=== PATIENT | female | born 1970 ===

== ENCOUNTER 2018-04-01 19:46 | Emergency (ER) | payer MEDICAID ==
[2018-04-01 20:07] VITALS: O2SAT 100
--- NOTE | 2018-04-01 20:24 | C.PDOC ---
History Of Present Illness 48 year old female presents to the ED c/o right sided weakness, dizziness and a mild headache that started yesterday. Patient denies injury, fall, trauma, nausea, vomit, visual changes, numbness, CP, SOB. Chief Complaint (Nursing): Weakness/Neurological Deficit History Per: Patient History/Exam Limitations: no limitations Onset/Duration Of Symptoms: Days Current Symptoms Are (Timing): Still Present Activity At Onset Of Symptoms: Lying Associated Symptoms Preceding Syncopal Episode: No Predromal Symptoms (Sudden Onset) Seizure Or Post-ictal Symptoms: None Possible Causative Factor(s): Other Fall Associated With With Symptoms: No Severity: None Recent travel outside of the [place]: No Additional History Per: Patient Past Medical History Reviewed: Historical Data, Nursing Documentation, Vital Signs Vital Signs: Last Vital Signs Temp 98.6 F 04/01/18 20:00 Pulse 73 04/01/18 20:00 Resp 19 04/01/18 20:00 BP 145/92 H 04/01/18 20:00 Pulse Ox 100 04/01/18 20:00 - Medical History PMH: HIV, HTN Surgical History: No Surg Hx Family History: States: Unknown Family Hx - Social History Hx Alcohol Use: No Hx Substance Use: No - Immunization History Hx Tetanus Toxoid Vaccination: No Hx Influenza Vaccination: Yes Hx Pneumococcal Vaccination: Yes Review Of Systems Constitutional: Negative for: Fever, Chills Cardiovascular: Negative for: Chest Pain Respiratory: Negative for: Shortness of Breath Gastrointestinal: Negative for: Nausea, Vomiting Skin: Negative for: Rash Neurological: Positive for: Weakness. Negative for: Numbness, Headache, Dizziness Physical Exam - Physical Exam Appears: Non-toxic, No Acute Distress Skin: Normal Color, Warm, Dry Head: Atraumatic, Normacephalic Eye(s): bilateral: Normal Inspection Neck: Normal ROM, Supple Chest: Symmetrical Cardiovascular: Rhythm Regular Respiratory: Normal Breath Sounds, No Rales, No Rhonchi, No Wheezing Gastrointestinal/Abdominal: Soft, No Tenderness, No Guarding, No Rebound Extremity: Normal ROM, No Tenderness, No Swelling Neurological/Psych: Oriented x3, Normal Speech, Normal Cognition, Normal Motor, Normal Sensation, Other (non focal deficits) Gait: Steady ED Course And Treatment - Laboratory Results Result Diagrams: 04/01/18 18:50 04/01/18 18:50 ECG: Interpreted By Me, Viewed By Me ECG Rhythm: Sinus Rhythm ECG Interpretation: No Acute Changes Interpretation Of ECG: NSR, LVH, abnormal tracings. Rate From EC O2 Sat by Pulse Oximetry: 100 (ON RA) Pulse Ox Interpretation: Normal - CT Scan/US CT head Other Rad Studies (CT/US): Read By Radiologist, Radiology Report Reviewed CT/US Interpretation: EXAM: CT Head Without IV contrast. CLINICAL HISTORY: Headache no trauma. TECHNIQUE: Axial computed tomography images of the head /brain without intravenous contrast. COMPARISON: None provided. FINDINGS: BRAIN. No acute intraparenchymal hemorrhage. No mass lesion. No CT evidence for acute territorial infarct. No midline shift or extra-axial collections. VENTRICLES: No hydrocephalus. ORBITS: The orbits are unremarkable. SINUSES AND MASTOIDS: The paranasal sinuses and mastoid air cells are clear. BONES: No fracture. IMPRESSION: No acute intracranial abnormality. . Electronically signed on Apr 01, 2018 9:45:05 PM EDT by: Maurilio Holbrook M.D., ALEX Certified By ABR & CBC[facility]. Fellowship Trained MRI and CT Specialist Medical Decision Making Medical Decision Making: Plan: * CT head * EKG * Labs * Antivert 25 mg PO * UA Disposition Counseled Patient/Family Regarding: Diagnosis - Disposition Referrals: [facility] [Outside] Disposition: HOME/ ROUTINE Disposition Time: 21:56 Condition: STABLE Prescriptions: Ciprofloxacin [Cipro] 1 tab PO BID #14 tab Meclizine [Antivert] 12.5 mg PO Q6 #14 tab Instructions: Labyrinthitis, Urinary Tract Infections in Adults Forms: [facility] (Sammarinese), Gen Discharge Inst Turkish Print Language: PALAUAN - POA Present On Arrival: None - Clinical Impression Clinical Impression: Vertigo, UTI (urinary tract infection) - Scribe Statement The provider has reviewed the documentation as recorded by the Scribe Jacques Thompson All medical record entries made by the Scribe were at my direction and personally dictated by me. I have reviewed the chart and agree that the record accurately reflects my personal performance of the history, physical exam, medical decision making, and the department course for this patient. I have also personally directed, reviewed, and agree with the discharge instructions and disposition.
[2018-04-01 20:38] LABS: BASO % 0.5 % (0.0-2.0); EOS # 0.1 K/uL (0.0-0.7); HEMOGLOBIN 14.2 g/dL (11.0-16.0); LYMPH # 2.2 K/uL (1.0-4.3); LYMPH % 33.8 % (20.0-40.0); MEAN CORPUSCULAR HEMOGLOBIN 33.3 pg (27.0-31.0); MEAN CORPUSCULAR HGB CONC 34.7 g/dL (33.0-37.0); MEAN PLATELET VOLUME 7.8 fL (7.2-11.7); MONO # 0.5 K/uL (0.0-0.8); NEUT # 3.8 K/uL (1.8-7.0); NEUT % 57.7 % (50.0-75.0); NRBC % 0.2 % (0.0-2.0); RBC 4.25 Mil/uL (3.80-5.20); RED CELL DISTRIBUTION WIDTH 12.7 % (11.5-14.5); WHITE BLOOD COUNT 6.5 K/uL (4.8-10.8)
[2018-04-01 20:46] LABS: SQUAMOUS EPITHIAL 12 /hpf (0-5); URINE BACTERIA MANY (<OCC); URINE BILIRUBIN NEGATIVE (NEGATIVE); URINE BLOOD 2+ (NEGATIVE); URINE CLARITY Hazy (Clear); URINE COLOR Yellow (YELLOW); URINE GLUCOSE (UA) NORMAL (Normal); URINE LEUKOCYTE ESTERASE 3+ Leu/uL (Negative); URINE PROTEIN NEGATIVE (NEGATIVE); URINE UROBILINOGEN NORMAL mg/dL (0.2-1.0)
[2018-04-01 20:50] LABS: ALB/GLOB RATIO 1.2 (1.0-2.1); ALBUMIN 4.3 g/dL (3.5-5.0); ALT/SGPT 22 U/L (9-52); AST/SGOT 28 U/L (14-36); BLOOD UREA NITROGEN 15 mg/dL (7-17); CALCIUM 9.5 mg/dl (8.6-10.4); GFR NON-AFRICAN AMERICAN > 60
[2018-04-01 22:11] VITALS: BP 131/83; PULSE 66; RESP 18; TEMP 98.7
--- NOTE | 2018-04-02 08:49 | CT ---
Date of service: 04/01/2018 PROCEDURE: CT HEAD WITHOUT CONTRAST. HISTORY: Headache COMPARISON: None available. TECHNIQUE: Axial computed tomography images were obtained through the head/brain without intravenous contrast. Radiation dose: Total exam DLP = 956 mGy-cm. This CT exam was performed using one or more of the following dose reduction techniques: Automated exposure control, adjustment of the mA and/or kV according to patient size, and/or use of iterative reconstruction technique. FINDINGS: HEMORRHAGE: No intracranial hemorrhage. BRAIN: Focal hypodensity seen within the left aspect of the sujatha on series 2, image 7 which may represent age-indeterminate ischemic change. Further evaluation with MRI is recommended. VENTRICLES: Unremarkable. No hydrocephalus. CALVARIUM: Unremarkable. PARANASAL SINUSES: Unremarkable as visualized. No significant inflammatory changes. MASTOID AIR CELLS: Unremarkable as visualized. No inflammatory changes. OTHER FINDINGS: Intracranial arterial calcifications. IMPRESSION: Focal hypodensity seen within the left aspect of the sujatha on series 4, image 13 which may represent age-indeterminate ischemic change. Further evaluation with MRI is recommended. These findings were relayed to Bong Holbrook at 8:44 a.m. on 04/02/2018. Preliminary report was generated at 9:45 p.m. on 04/01/[address] Maurilio Holbrook from [email or web address].
--- NOTE | 2018-04-02 22:49 | CARD ---
APPROVED REPORT Date of service: 04/01/2018 EKG Measurement Heart [id number] OR [id number] <Conclusion> Normal sinus rhythm Possible Left atrial enlargement Left ventricular hypertrophy Cannot rule out Septal infarct, age undetermined Abnormal ECG
== END 2018-04-01 22:12 | disposition home or self-care (01) ==
LOC: C.ER 19:46
DX: R42 Dizziness and giddiness (principal); N39.0 Urinary tract infection, site not specified

== ENCOUNTER 2018-04-03 13:38 | Emergency (ER) | payer MEDICAID ==
[2018-04-03 14:21] VITALS: RESP 18; O2SAT 100
[2018-04-03 15:56] LABS: BASO % 0.3 % (0.0-2.0); EOS % 0.6 % (0.0-4.0); HEMOGLOBIN 12.6 g/dL (11.0-16.0); LYMPH # 2.5 K/uL (1.0-4.3); LYMPH % 32.8 % (20.0-40.0); MEAN CELL VOLUME 95.8 fL (81.0-99.0); MEAN CORPUSCULAR HEMOGLOBIN 33.1 pg (27.0-31.0); MEAN CORPUSCULAR HGB CONC 34.6 g/dL (33.0-37.0); MEAN PLATELET VOLUME 7.6 fL (7.2-11.7); MONO # 0.4 K/uL (0.0-0.8); MONO % 4.8 % (0.0-10.0); NEUT # 4.6 K/uL (1.8-7.0); NEUT % 61.5 % (50.0-75.0); RBC 3.81 Mil/uL (3.80-5.20); RED CELL DISTRIBUTION WIDTH 12.7 % (11.5-14.5); WHITE BLOOD COUNT 7.5 K/uL (4.8-10.8)
[2018-04-03 16:04] LABS: INR 1.1; PROTHROMBIN TIME 11.5 SECONDS (9.7-12.2)
--- NOTE | 2018-04-03 16:21 | C.PDOC ---
History Of Present Illness 48 year old female presents to the ED for evaluation of right arm and leg weakness which began around one week ago. Patient states symptoms are associated with dizziness, nausea, and left facial paresthesia. Patient was evaluated in this ED on 04/01 and was diagnosed with vertigo. An official reading of the CT scan demonstrated a possible area of ischemia and patient was advised to return to the ED for further evaluation. Patient reports she started taking Aspirin since one week and her symptoms have slightly decreased. Patient denies headache, blurry vision, difficulty with speech or gait. Past medical history: hypertension, HIV Surgical history: none Social history: no smoking or drinking Family history: none PMD: Dr. Dr. Hernandez Time Seen by Provider: 04/03/18 15:12 Chief Complaint (Nursing): Weakness/Neurological Deficit History Per: Patient History/Exam Limitations: no limitations Onset/Duration Of Symptoms: Days Current Symptoms Are (Timing): Better Past Medical History Reviewed: Historical Data, Nursing Documentation, Vital Signs Vital Signs: Last Vital Signs Temp 98.5 F 04/03/18 14:19 Pulse 75 04/03/18 14:19 Resp 18 04/03/18 14:19 BP 150/84 04/03/18 14:19 Pulse Ox 100 04/03/18 14:19 - Medical History PMH: HIV, HTN Surgical History: No Surg Hx Family History: States: Unknown Family Hx - Social History Hx Alcohol Use: No Hx Substance Use: No - Immunization History Hx Tetanus Toxoid Vaccination: Yes Hx Influenza Vaccination: Yes (2018) Hx Pneumococcal Vaccination: Yes Review Of Systems Eyes: Negative for: Vision Change Neurological: Positive for: Weakness (right arm and leg ). Negative for: Change in Speech, Headache Physical Exam - Physical Exam Appears: Non-toxic, No Acute Distress Skin: Warm, Dry Head: Atraumatic, Normacephalic Eye(s): bilateral: PERRL, EOMI Oral Mucosa: Moist Neck: Normal ROM, Trachea Midline Lymphatic: No Adenopathy Cardiovascular: Rhythm Regular, No Murmur Respiratory: Normal Breath Sounds, No Wheezing Gastrointestinal/Abdominal: Soft, No Tenderness Back: Normal Inspection, No Decreased ROM Extremity: Normal ROM, No Deformity Neurological/Psych: Oriented x3, Other (left-sided facial droop noted. subtle motor weakness in right arm and leg, 4+/5 ) ED Course And Treatment - Laboratory Results Result Diagrams: 04/03/18 15:52 04/03/18 15:52 ECG: Interpreted By Me ECG Rhythm: Sinus Rhythm (60), Nonspecific Changes (but no st elevations or depression) O2 Sat by Pulse Oximetry: 100 (on RA) Pulse Ox Interpretation: Normal - Radiology CXR: Interpreted by Me CXR Interpretation: Yes: No Acute Disease Medical Decision Making Medical Decision Making: Impression: unilateral weakness Differential diagnoses include but are not limited to: stroke vs electrolyte abnormality vs intracranial mass vs multiple sclerosis Progress: Bloodwork, urinalysis, CXR, EKG ordered and reviewed. DW Dr Elizalde Neurology who recommends MRI brain, MRA head/neck. Hospitalize for acute CVA. Labs unremarkable 620p Dr Elizalde reviewed MRI and reports pt stable for DC. Pt can complete workup as outpatient DW pt plan of care. 745p MRI report demonstrates subacute CVA sujatha. DW Dr Elizalde who recommends pt to be called back for hospitalization. Called pt at home and advised to return to hospital immediately for continued workup as inpatient. DW pt and in bulgarian need to return to ER. Advised about findings on MRI. Disposition Counseled Patient/Family Regarding: Studies Performed, Diagnosis - Disposition Referrals: Krunal Elizalde MD [Staff Provider] - (LLAME A LA OFICINA POR LA MANANA A HACER HARVEY BILLY EST SEMANA POR MAS EVALUACIONES.) Disposition: HOME/ ROUTINE Disposition Time: 17:55 Condition: STABLE Prescriptions: RX: Aspirin [Ecotrin] 81 mg PO DAILY #100 tabec Instructions: Generalized Weakness (DC) Forms: [facility] (Macanese) Print Language: MONGOLIAN - Clinical Impression Clinical Impression: Muscle weakness - Scribe Statement The provider has reviewed the documentation as recorded by the Scribe (Mryanda Ibrahim) Provider Attestation: All medical record entries made by the Scribe were at my direction and personally dictated by me. I have reviewed the chart and agree that the record accurately reflects my personal performance of the history, physical exam, me dical decision making, and the department course for this patient. I have also personally directed, reviewed, and agree with the discharge instructions and disposition. NIHSS Stroke Scale - Date/Time Evaluation Performed Date Performed: 04/03/18 Time Performed: 15:15 When Was NIHSS Performed: Baseline - How Severe is the Stoke Level of Consciousness: 0=Alert LOC to Questions: 0=Both comments correct LOC to commands: 0=Obeys both correctly Best Gaze: 0=Normal Visual: 0=No visual loss Facial: 1=Minor asymmetry Motor Arm - Left: 0=No drift Motor Arm - Right: 0=No drift Motor Leg - Left: 0=No drift Motor Leg - Right: 0=No drift Limb Ataxia: 0=Absent Sensory: 0=Normal Best Language: 0=No aphasia Dysarthia: 0=Normal articulation Extinction & Inattention (Neglect): 0=Normal, no object Score: 1 Severity Of Stroke: 1-4= Minor Stroke
[2018-04-03 16:30] LABS: ALB/GLOB RATIO 1.2 (1.0-2.1); ALBUMIN 4.3 g/dL (3.5-5.0); ALT/SGPT 26 U/L (9-52); AST/SGOT 28 U/L (14-36); BLOOD UREA NITROGEN 12 mg/dL (7-17); CALCIUM 9.6 mg/dl (8.6-10.4); GFR NON-AFRICAN AMERICAN > 60
[2018-04-03 17:53] VITALS: BP 162/79; PULSE 65; TEMP 98.1
--- NOTE | 2018-04-03 18:33 | CP.PCM.HP ---
Past Patient History - Past Social History Smoking Status: Light Smoker < 10 Cigarettes Daily - CARDIAC Hx Hypertension: Yes - HEMATOLOGICAL/ONCOLOGICAL Hx Human Immunodeficiency Virus (HIV): Yes - PSYCHIATRIC Hx Substance Use: No - SURGICAL HISTORY Hx Surgeries: Yes Hx Hysterectomy: Yes (PARTIAL) - ANESTHESIA Hx Anesthesia: Yes Hx Anesthesia Reactions: No Meds Home Medications: Home Medication List Medication Instructions Recorded Confirmed Type Aspirin [Ecotrin] 81 mg PO DAILY #100 tabec 04/03/18 Rx Allergies/Adverse Reactions: Allergies Allergy/AdvReac Type Severity Reaction Status Date / Time No Known Allergies Allergy Verified 04/03/18 14:21 Physical Exam - Constitutional Appears: Well - Head Exam Head Exam: ATRAUMATIC, NORMAL INSPECTION, NORMOCEPHALIC - Eye Exam Eye Exam: EOMI, Normal appearance, PERRL Pupil Exam: NORMAL ACCOMODATION, PERRL - ENT Exam ENT Exam: Mucous Membranes Moist, Normal Exam - Neck Exam Neck exam: Positive for: Normal Inspection - Respiratory Exam Respiratory Exam: Decreased Breath Sounds - Cardiovascular Exam Cardiovascular Exam: REGULAR RHYTHM, +S1, +S2 - GI/Abdominal Exam GI & Abdominal Exam: Diminished Bowel Sounds, Soft - Rectal Exam Rectal Exam: Deferred Results - Vital Signs Recent Vital Signs: Last Vital Signs Temp 98.1 F 04/03/18 17:53 Pulse 65 04/03/18 17:53 Resp 18 04/03/18 17:53 BP 162/79 H 04/03/18 17:53 Pulse Ox 100 04/03/18 17:56 - Labs Result Diagrams: 04/03/18 15:52 04/03/18 15:52 Labs: Laboratory Results - last 24 hr 04/03/18 04/03/18 04/03/18 15:52 15:52 15:52 WBC 7.5 RBC 3.81 Hgb 12.6 Hct 36.5 MCV 95.8 MCH 33.1 H MCHC 34.6 RDW 12.7 Plt Count 263 MPV 7.6 Neut % (Auto) 61.5 Lymph % (Auto) 32.8 Harney % (Auto) 4.8 Eos % (Auto) 0.6 Baso % (Auto) 0.3 Neut # (Auto) 4.6 Lymph # (Auto) 2.5 Harney # (Auto) 0.4 Eos # (Auto) 0.0 Baso # (Auto) 0.0 PT 11.5 INR 1.1 APTT 31 Sodium 144 Potassium 4.2 Chloride 108 H Carbon Dioxide 24 Anion Gap 16 BUN 12 Creatinine 0.7 Est GFR ( Amer) > 60 Est GFR (Non-Af Amer) > 60 POC Glucose (mg/dL) Random Glucose 111 H Calcium 9.6 Total Bilirubin 0.5 AST 28 ALT 26 Alkaline Phosphatase 87 Total Protein 8.1 Albumin 4.3 Globulin 3.8 Albumin/Globulin Ratio 1.2 Blood Type Antibody Screen 04/03/18 04/03/18 15:52 15:54 WBC RBC Hgb Hct MCV MCH MCHC RDW Plt Count MPV Neut % (Auto) Lymph % (Auto) Harney % (Auto) Eos % (Auto) Baso % (Auto) Neut # (Auto) Lymph # (Auto) Harney # (Auto) Eos # (Auto) Baso # (Auto) PT INR APTT Sodium Potassium Chloride Carbon Dioxide Anion Gap BUN Creatinine Est GFR ( Amer) Est GFR (Non-Af Amer) POC Glucose (mg/dL) 99 Random Glucose Calcium Total Bilirubin AST ALT Alkaline Phosphatase Total Protein Albumin Globulin Albumin/Globulin Ratio Blood Type O POSITIVE Antibody Screen Negative
--- NOTE | 2018-04-03 18:35 | RAD ---
HISTORY: CVA COMPARISON: No prior. TECHNIQUE: Chest, one view. FINDINGS: LUNGS: No focal consolidation. Please note that chest x-ray has limited sensitivity for the detection of pulmonary masses. PLEURA: No significant pleural effusion identified. No definite pneumothorax . CARDIOVASCULAR: The cardiomediastinal silhouette appears within normal limits of size. OSSEOUS STRUCTURES: No acute osseous abnormality identified. VISUALIZED UPPER ABDOMEN: Unremarkable. OTHER FINDINGS: None. IMPRESSION: No focal consolidation, significant pleural effusion, or definite pneumothorax identified.
--- NOTE | 2018-04-04 10:35 | MRI ---
Date of service: 04/03/2018 PROCEDURE: Magnetic Resonance Angiography Brain HISTORY: RIGHT sided weakness COMPARISON: None available. TECHNIQUE: 3D time of flight MR angiography of the intracranial arteries was performed. Rotating maximum intensity projection images were generated. FINDINGS: INTERNAL CAROTID ARTERIES: Moderate atherosclerotic changes results in a moderate stenosis of the mid to distal right cavernous ICA with irregular plaque identified at the proximal left cavernous ICA without significant stenosis. Consideration of follow-up CT angiography is advised to exclude potential small aneurysm related to the proximal left cavernous ICA segment. No occlusion or high-grade stenosis bilaterally. ANTERIOR CEREBRAL ARTERIES: There is mild hypoplasia of the right A1 MELA segment with the left A1 and A2 segments normal in caliber. The right A2 MELA segment is normal as well. Visualized more distal branches are unremarkable. MIDDLE CEREBRAL ARTERIES: Unremarkable. M1 and M2 segments are widely patent. Perisylvian branches grossly symmetric. POSTERIOR CIRCULATION: Basilar Artery: Unremarkable. Distal Vertebral Arteries: Unremarkable. Posterior Cerebral Arteries: Unremarkable. Posterior Inferior Cerebellar Arteries: Unremarkable. ANEURYSM/ VASCULAR MALFORMATIONS: Potential small left cavernous ICA aneurysm though this is more likely public relations representative of irregular atherosclerotic plaque. Remainder unremarkable. OTHER FINDINGS: None. IMPRESSION: Moderate stenosis mid distal right cavernous ICA. Consider follow-up CT angiogram of the head and neck for additional characterization. There is also likely irregular plaque at the proximal left cavernous ICA simulating a small aneurysm which can also be evaluated by CT angiography. Hypoplastic right A1 MELA segment with remainder of the intracranial MR angiogram unremarkable.
--- NOTE | 2018-04-04 10:46 | MRI ---
Date of service: 04/03/2018 PROCEDURE: MRI BRAIN WITHOUT CONTRAST HISTORY: RIGHT sided weakness COMPARISON: None available. TECHNIQUE: Multiplanar, multisequence MR images of the brain were obtained without intravenous contrast enhancement. FINDINGS: HEMORRHAGE: None DWI: There is a small area of restricted diffusion at the left side of the sujatha measure approximately 1 cm. ADC map confirms this as an acute or subacute infarct with lack of sharp brightness in the diffusion series suggesting subacute nature. Edema is seen in this area in the remaining sequences, particularly long TR sequences. No additional infarct above or below the tentorium otherwise. BRAIN PARENCHYMA: Further, borderline expansion of the ventricular sulcal sternal spaces identified and there are infrequent scattered subcortical long TR hyperintensities under 1 cm size in all cases identified bilaterally, primarily involving bilateral frontal and parietal lobes but also lateral temporal lobes to some degree. Limited periventricular white-matter changes are identified further. In a 48-year-old, this is a nonspecific finding could reflect early chronic microangiopathy, particularly the patient is a vasculopath such is a diabetic or patient with vasculitis. Migraine headaches or hypertension are also possible etiology. Demyelination and Lyme disease are not necessarily favored but are included in the differential diagnosis. Other etiologies are also possible. No suspicious cortical abnormality throughout the cerebrum with the cerebellum. No mass effect or suspicious extra-axial fluid collection. VENTRICLES: Unremarkable. No hydrocephalus. CRANIUM: Unremarkable. ORBITS: Grossly unremarkable. PARANASAL SINUSES/MASTOIDS: Clear VASCULAR SYSTEM: Skull base flow voids intact. OTHER FINDINGS: None. IMPRESSION: Findings most compatible with a small infarct at the left side of the sujatha on a subacute basis, favored over acute. No lobar brain infarction identified. No mass effect. Borderline diffuse cerebral atrophy. Early chronic microangiopathy is a possibility to explain limited white-matter signal abnormalities, particularly the patient is diabetic or has other vasculopathic disorder. Please see differential diagnosis as other etiologies are not excluded. Corpus callosum is normal however. Discordant preliminary report from [email or web address] (Impression No. Two, not mentioned), 04/03/2018.
--- NOTE | 2018-04-04 10:50 | MRI ---
Date of service: 04/03/2018 PROCEDURE: MR Angiography of the neck without contrast HISTORY: RIGHT sided weakness COMPARISON: None available. TECHNIQUE: 3D [id number] angiography of the neck was performed. Rotating maximum intensity projection images of the cervical carotid and vertebral arteries were generated. The origins of the common carotid arteries were not visualized, which is a limitation inherent to the non-contrast time of flight technique. FINDINGS: RIGHT CAROTID ARTERIES: Common Carotid Artery: Patent without significant stenosis. Carotid Bifurcation: Limited atherosclerotic plaque identified. Internal Carotid Artery:Patent without significant stenosis External Carotid Artery (proximal branches): Normal. LEFT CAROTID ARTERIES: Common Carotid Artery: Patent without significant stenosis. Carotid Bifurcation: Limited atherosclerotic plaque identified. Internal Carotid Artery:Patent without significant stenosis. External Carotid Artery (proximal branches): Normal. VERTEBRAL ARTERIES: Right Vertebral Artery: Normal. Left Vertebral Artery: Normal. OTHER FINDINGS: None. IMPRESSION: No significant common or cervical internal carotid artery stenosis bilaterally or bilateral vertebral arteries. Limited carotid bulbar plaque identified bilaterally. Concordant preliminary report from [facility], 04/03/2018.
== END 2018-04-03 18:20 | disposition home or self-care (01) ==
LOC: C.ER 13:38 → UNDOADMOB 16:56 → C.9E 16:56 → C.6T 18:05 → C.9E 19:07 → C.6T 19:07
DX: M62.81 Muscle weakness (generalized) (principal)

== ENCOUNTER 2018-04-03 21:24 | Inpatient (IN) | payer MEDICAID ==
[2018-04-03 22:15] LABS: HDL CHOLESTEROL 43 mg/dL (30-70)
--- NOTE | 2018-04-03 22:15 | C.PDOC ---
History Of Present Illness 48 year old female presents to the ED for evaluation of right arm and leg weakness which began around one week ago. Patient states symptoms are associated with dizziness, nausea, and left facial paresthesia. Patient was evaluated in this ED on 04/01 and was diagnosed with vertigo. An official reading of the CT scan demonstrated a possible area of ischemia and patient was advised to return to the ED for further evaluation. Patient reports she started taking Aspirin since one week and her symptoms have slightly decreased. Patient denies headache, blurry vision, difficulty with speech or gait. Seen earlier today and discharged and called back again due to MRI reading PMD Dr Bustos Time Seen by Provider: 04/03/18 21:49 Chief Complaint (Nursing): Weakness/Neurological Deficit Past Medical History Reviewed: Historical Data, Nursing Documentation, Vital Signs Vital Signs: Last Vital Signs Temp 98.8 F 04/03/18 21:29 Pulse 73 04/03/18 21:29 Resp 18 04/03/18 21:29 BP 153/87 H 04/03/18 21:29 Pulse Ox 100 04/03/18 21:29 - Medical History PMH: Asthma, HIV, HTN Family History: States: Unknown Family Hx - Social History Hx Alcohol Use: No Hx Substance Use: No - Immunization History Hx Tetanus Toxoid Vaccination: Yes Hx Influenza Vaccination: Yes (2018) Hx Pneumococcal Vaccination: Yes Review Of Systems Except As Marked, All Systems Reviewed And Found Negative. (and as per HPI) Neurological: Positive for: Weakness, Dizziness Physical Exam - Physical Exam Appears: Well, Non-toxic Skin: Warm, Dry Head: Normacephalic, Tenderness Eye(s): bilateral: PERRL, EOMI Oral Mucosa: Moist Throat: No Erythema, No Exudate Neck: Normal ROM, Trachea Midline Lymphatic: No Adenopathy Cardiovascular: Rhythm Regular, No Murmur Respiratory: Normal Breath Sounds, No Wheezing Gastrointestinal/Abdominal: Soft, No Tenderness Back: Normal Inspection, No Decreased ROM Extremity: No Pedal Edema, No Deformity, Other (4+/5 RUE/RLE strength) Neurological/Psych: Oriented x3, Normal Speech, No Cerebellar Signs, Normal Sensation ED Course And Treatment O2 Sat by Pulse Oximetry: 100 Progress Note: DW Dr Elizalde Neurologist earlier. Recommended initiating plavix and asa and check hgba1c and lipid panel and echo. GINA pt plan of care. All questions/concerns addressed and answered. 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 Cari [phone] - Physician Consult Information Physician Contacted: Krunal Elizalde Disposition Discussed With : Alaina Ibrahim Counseled Patient/Family Regarding: Studies Performed, Diagnosis - Disposition Disposition: HOSPITALIZED Disposition Time: 22:39 Condition: FAIR - POA Present On Arrival: None - Clinical Impression Clinical Impression: CVA (cerebral vascular accident) NIHSS Stroke Scale - Date/Time Evaluation Performed Date Performed: 04/03/18 Time Performed: 21:45 When Was NIHSS Performed: 24 hours post onset S/S - How Severe is the Stroke Level of Consciousness: 0=Alert LOC to Questions: 0=Both comments correct LOC to commands: 0=Obeys both correctly Best Gaze: 0=Normal Visual: 0=No visual loss Facial: 1=Minor asymmetry Motor Arm - Left: 0=No drift Motor Arm - Right: 0=No drift Motor Leg - Left: 0=No drift Motor Leg - Right: 0=No drift Limb Ataxia: 0=Absent Sensory: 0=Normal Best Language: 0=No aphasia Dysarthia: 0=Normal articulation Extinction & Inattention (Neglect): 0=Normal, no object Score: 1
[2018-04-03 22:40] LABS: LDL CHOLESTEROL 166 mg/dL (0-129)
[2018-04-04 02:19] VITALS: RESP 20
[2018-04-04] MEDS ORDERED: COBICISTAT PO SCH (12:00)
[2018-04-04] MEDS ORDERED: DARUNAVIR PO SCH (12:00)
[2018-04-04] MEDS: Emtricitabine-Tenofovir 200 mg-300 mg Tab PO SCH (13:52)
--- NOTE | 2018-04-04 14:11 | CP.PCM.PN ---
Subjective - Date & Time of Evaluation Date of Evaluation: 04/04/18 Time of Evaluation: 14:09 - Subjective Subjective: PGY-2 Progress Note Patient seen and examined at bedside. Per nursing no acute events occurred overnight .Patient still reports some right side weakness from yesterday. She denies any chest pain, shortness of breath, fevers, chills, nausea, vomiting, headaches, dizziness, syncopal episodes, or any other complaints. 48 year old female with a past medical history of hiv, hypertension, anxiety, and insomnia who comes in for right sided weakness for about a week. Patient recently visited the emergency department were she was diagnosed with vertigo. Patient denies any chest pain, shortness of breath, fevers, chills, abdominal , headaches, dizziness, changes in vision, or any other complaints. Medical history: hypertension, hiv, anxiety, insomnia Surgical history:Hysterectomy Allergies: Denies Medications: Meclizine, Ciprofloxacin, Metoprolol, Ambien, Xanax Social history: 30 year history of smoking. Denies alcohol and illicit drug use. Objective - Vital Signs/Intake and Output Vital Signs (last 24 hours): Temp Pulse Resp BP Pulse Ox 98.2 F 76 20 124/79 98 04/04/18 08:27 04/04/18 08:27 04/04/18 08:27 04/04/18 08:27 04/04/18 08:27 - Medications Medications: Current Medications Aspirin (Aspirin) 325 mg PO DAILY [facility] Last Admin: 04/04/18 14:05 Dose: 325 mg Clopidogrel Bisulfate (Plavix) 75 mg PO DAILY [facility] Last Admin: 04/04/18 13:52 Dose: 75 mg Emtricitabine/Tenofovir (Truvada 200 Mg-300 Mg) 1 tab PO DAILY [facility]; Protocol Last Admin: 04/04/18 13:52 Dose: 1 tab Home Med (Darunavir/Cobicistat [Prezcobix 800 Mg-150 Mg Tablet]) 1 tab PO DAILY [facility] Meclizine HCl (Antivert) 12.5 mg PO Q6 PRN PRN Reason: Dizziness Last Admin: 04/04/18 13:52 Dose: 12.5 mg Metoprolol Tartrate (Lopressor) 50 mg PO DAILY [facility] Last Admin: 04/04/18 13:52 Dose: 50 mg Rosuvastatin Calcium (Crestor) 10 mg PO HS JAMIR - Head Exam Head Exam: ATRAUMATIC, NORMAL INSPECTION - Eye Exam Eye Exam: EOMI, Normal appearance. absent: Periorbital tenderness Pupil Exam: NORMAL ACCOMODATION, PERRL - ENT Exam ENT Exam: Mucous Membranes Moist, Normal Oropharynx - Neck Exam Neck Exam: absent: Lymphadenopathy, Thyromegaly - Respiratory Exam Respiratory Exam: Clear to Ausculation Bilateral, Respiratory Distress, NORMAL BREATHING PATTERN - Cardiovascular Exam Cardiovascular Exam: REGULAR RHYTHM, +S1, +S2 - GI/Abdominal Exam GI & Abdominal Exam: Soft, Normal Bowel Sounds. absent: Rigid, Hyperactive Bowel Sounds - Extremities Exam Extremities Exam: Full ROM, Normal Inspection. absent: Pedal Edema - Neurological Exam Neurological Exam: Alert, Awake, Normal Gait - Psychiatric Exam Psychiatric exam: Normal Affect, Normal Mood - Skin Skin Exam: Dry, Intact, Normal Color Assessment and Plan - Assessment and Plan (Free Text) Assessment: 48 year old female with a past medical history of hiv, hypertension, anxiety, and insomnia who was admitted for ?cva. Plan: 1?CVA Code Stroke Called Neurology consulted. Help appreciated MRI head: :Findings most compatible with a small infarct at the left side of the sujatha on a subacute basis, favored over acute. No lobar brain infarction identified. No mass effect. Borderline diffuse cerebral atrophy. Early chronic microangiopathy is a possibility to explain limited white-matter signal abnormalities, particularly the patient is diabetic or has other vasculopathic disorder. Please see differential diagnosis as other etiologies are not excluded. Corpus callosum is normal however. MRA head: :Moderate stenosis mid distal right cavernous ICA. Consider follow-up CT angiogram of the head and neck for additional characterization. There is also likely irregular plaque at the proximal left cavernous ICA simulating a small aneurysm which can also be evaluated by CT angiography. Hypoplastic right A1 MELA segment with remainder of the intracranial MR angiogram unremarkable. Head ct: :Focal hypodensity seen within the left aspect of the sujatha on series 4, image 13 which may represent age-indeterminate ischemic change. Further evaluation with MRI is recommended. These findings were relayed to Bong Holbrook at 8:44 a.m. on 04/02/2018. MRA Neck: : No significant common or cervical internal carotid artery stenosis bilaterally or bilateral vertebral arteries. Limited carotid bulbar plaque identified bilaterally. PT/OT Medications: Aspirin 325mg PO Daily Plavix 75mg PO Daily Rosuvastatin 10mg PO HS 2. HIV -Patient had recent personal struggles that prevented her from maintaining medication regimen. -Infectious Disease Dr. Navas consulted. Help appreciated -CD4 count ordered. Will f/u with results. -HIV viral load ordered. Will f/u with results. 3.Hypertension -Restart Metoprolol 50mg PO Daily ppx -Pepcid -SCD's Dispo: Awaiting further rec's from Dr. Elizalde. All management per Dr. Alexx Schofield, PGY-2
--- NOTE | 2018-04-04 15:08 | CP.PCM.CON ---
<Nikia Brizuela - Last Filed: 04/04/18 20:39> History of Present Illness - History of Present Illness History of Present Illness: PGY1 Neurology Consult Note for Dr. Elizalde This is a 48-year-old female with a past medical history of HIV, hypertension, anxiety, and insomnia who was referred to us by Dr. Cronin for right-sided weakness for about a week. Patient was recently seen in the ED on 04/01/18 where she was diagnosed with vertigo, however patient returned to the ED on 04/03/18 due to right-sided (both upper and lower extremity) weakness, numbness, and dizziness. Patient reports she kept falling, though she was able to catch herself during each fall, and the patient denies any loss of consciousness and/or hitting her head. Patient denies previous episodes. ROS is significant for nausea and left facial paresthesia. Patient reports she took ASA for about 1 week, which she says helped her symptoms. Patient otherwise denies headache, blurry vision, difficulty with speech and/or gait. Of note, per patient's chart, the patient's CT scan demonstrated a possible area of ischemia. Thus, the patient was advised to return to the ED for further evaluation later in the evening of 04/03/18. CT obtained revealed focal hypodensity seen within the left aspect of the sujatha on series 4, image 13 which may represent age-indeterminate ischemic change. MRI brain was obtained and revealed, per official report: findings most compatible with a small infarct at the left side of the sujatha on a subacute basis, favored over acute. No lobar infarction identified. No mass effect. Borderline diffuse cerebral atrophy. MRA head shows moderate stenosis of mid distal right cavernous ICA and likely irregular plaque at the proximal left cavernous ICA stimulating a small aneurysm. Hypoplastic right A1 MELA segment with remainder of the intracranial MR angiogram unremarkable. MRA neck revealed no significant common or cervical internal carotid artery stenosis bilaterally or bilateral vertebra arteries. Limited carotid bulbar plaque identifies bilaterally. Past Patient History - Past Medical History & Family History Past Medical History?: Yes - Past Social History Smoking Status: Light Smoker < 10 Cigarettes Daily - CARDIAC Hx Hypertension: Yes - PULMONARY Hx Asthma: Yes - NEUROLOGICAL Hx Neurological Disorder: No - HEENT Hx HEENT Problems: No - RENAL Hx Chronic Kidney Disease: No - ENDOCRINE/METABOLIC Hx Endocrine Disorders: No - HEMATOLOGICAL/ONCOLOGICAL Hx Blood Disorders: Yes Hx Human Immunodeficiency Virus (HIV): Yes - INTEGUMENTARY Hx Dermatological Problems: No - MUSCULOSKELETAL/RHEUMATOLOGICAL Hx Musculoskeletal Disorders: No Hx Falls: No - GASTROINTESTINAL Hx Gastrointestinal Disorders: No - GENITOURINARY/GYNECOLOGICAL Hx Genitourinary Disorders: No - PSYCHIATRIC Hx Psychophysiologic Disorder: No Hx Substance Use: No - SURGICAL HISTORY Hx Surgeries: Yes Hx Hysterectomy: Yes (PARTIAL) - ANESTHESIA Hx Anesthesia: Yes Hx Anesthesia Reactions: No Meds Allergies/Adverse Reactions: Allergies Allergy/AdvReac Type Severity Reaction Status Date / Time No Known Allergies Allergy Verified 04/03/18 21:35 - Medications Medications: Current Medications Aspirin (Aspirin) 325 mg PO DAILY [facility] Last Admin: 04/04/18 14:05 Dose: 325 mg Clopidogrel Bisulfate (Plavix) 75 mg PO DAILY [facility] Last Admin: 04/04/18 13:52 Dose: 75 mg Emtricitabine/Tenofovir (Truvada 200 Mg-300 Mg) 1 tab PO DAILY [facility]; Protocol Last Admin: 04/04/18 13:52 Dose: 1 tab Famotidine (Pepcid) 20 mg PO DAILY [facility] Home Med (Darunavir/Cobicistat [Prezcobix 800 Mg-150 Mg Tablet]) 1 tab PO DAILY [facility] Meclizine HCl (Antivert) 12.5 mg PO Q6 PRN PRN Reason: Dizziness Last Admin: 04/04/18 13:52 Dose: 12.5 mg Metoprolol Tartrate (Lopressor) 50 mg PO DAILY [facility] Last Admin: 04/04/18 13:52 Dose: 50 mg Rosuvastatin Calcium (Crestor) 10 mg PO [facility] Physical Exam - Neurological Exam Neurological exam: Alert, CN II-XII Intact, Normal Gait, Oriented x3, Reflexes Normal - Expanded Neurological Exam Expanded Speech: Fluid Speech Cranial nerves: EOM's Intact: Abnormal Left (dysconjugate eye movements), Facial Palsey w/Forehead Movement: Normal, Facial Palsey w/o Forehead Movement: Normal, Facial Sensation: Normal, Gag Reflex: Normal, Nystagmus: Normal Cerebellar Function: Finger to Nose: Abnormal Right (fine motor coordination abnormal ) Upper motor neuron: [place] Neglect: Normal, Pronator Drift: Normal Sensory exam: Lower Extremity 2 Point Discrimination: Normal, Lower Extremity Light Touch: Normal, Lower Extremity Pin Prick: Normal, Lower Extremity Temperature: Normal, Upper Extremity 2 Point Discrimination: Normal, Upper Extremity Light Touch: Normal, Upper Extremity Pin Prick: Normal Neuro motor strength exam: Left Upper Extremity: 5, Right Upper Extremity: 5, Left Lower Extremity: 5, Right Lower Extremity: 5 DTR: Brachioradialis Left: 2+, Brachioradialis Right: 2+, Patellar Left: 2+, Patellar Right: 2+ - Additional Findings Additional findings: - Head Exam Head Exam: ATRAUMATIC, NORMAL INSPECTION - Eye Exam Eye Exam: dysconjugate eye movements (left) Pupil Exam: NORMAL ACCOMODATION, PERRL - ENT Exam ENT Exam: Mucous Membranes Moist, Normal Oropharynx - Neck Exam Neck Exam: absent: Lymphadenopathy, Thyromegaly - Psychiatric Exam Psychiatric exam: Normal Affect, Normal Mood - Skin Skin Exam: Dry, Intact, Normal Color Results - Vital Signs Recent Vital Signs: Last Vital Signs Temp 98.2 F 04/04/18 08:27 Pulse 76 04/04/18 08:27 Resp 20 04/04/18 08:27 BP 124/79 04/04/18 08:27 Pulse Ox 98 04/04/18 08:27 - Labs Labs: Laboratory Results - last 24 hr 04/03/18 04/03/18 21:59 21:59 Hemoglobin A1c 5.3 Triglycerides 150 H Cholesterol 239 H LDL Cholesterol Direct 166 H HDL Cholesterol 43 Assessment & Plan - Assessment and Plan (Free Text) Assessment: This is a 48-year-old female with a past medical history of HIV, hypertension, anxiety, and insomnia who comes in for right sided weakness for about 1 week. Code Stroke was called in the ED> Patient admitted to Telemetry for observation and further evaluation. Code Stroke Called for Right-Sided Weakness, resolved * MRI Head Official Report * Findings most compatible with a small infarct at the left side of the sujatha on a subacute basis, favored over acute. * No lobar brain infarction identified. * No mass effect. * Borderline diffuse cerebral atrophy. * Early chronic microangiopathy is a possibility to explain limited white- matter signal abnormalities, particularly the patient is diabetic or has other vasculopathic disorder. * MRA Head Official Report * Moderate stenosis mid distal right cavernous ICA. * Consider follow-up CT angiogram of the head and neck for additional characterization. * There is also likely irregular plaque at the proximal left cavernous ICA simulating a small aneurysm which can also be evaluated by CT angiography. * Hypoplastic right A1 MELA segment with remainder of the intracranial MR angiogram unremarkable. * Head CT Official Report * Focal hypodensity seen within the left aspect of the sujatha on series 4, image 13 which may represent age-indeterminate ischemic change. * MRA Neck Official Report: * No significant common or cervical internal carotid artery stenosis bilaterally or bilateral vertebral arteries. * Limited carotid bulbar plaque identified bilaterally. * Patient is without focal deficits, is able to walk with good pace, well- balanced stride, and without assistance as observed by myself and Dr. Elizalde, thus PT/OT not indicated. * Continue: Aspirin 325mg PO Daily, Plavix 75mg PO Daily * Discontinue: Rosuvastatin 10mg PO HS * Start Lipitor 80mg Daily due to elevated cholesterol ([id number]=157, lqqip=144, YJS=012) * Encouraged complete smoking cessation Please do not hesitate to call back with any new developments, data updates or questions. Thank you for the opportunity to participate in the care of this patient. Patient seen and evaluated with Dr. Tonio Brizuela PGY1 <Krunal Elizalde - Last Filed: 04/10/18 04:36> Results - Vital Signs Recent Vital Signs: Last Vital Signs Temp 98.4 F 04/06/18 07:15 Pulse 76 04/06/18 08:22 Resp 20 04/06/18 07:15 BP 121/77 04/06/18 07:15 Pulse Ox 99 04/06/18 07:15 - Labs Result Diagrams: 04/06/18 06:15 04/06/18 06:15 Attending/Attestation - Attestation I have personally seen and examined this patient.: Yes I have fully participated in the care of the patient.: Yes I have reviewed all pertinent clinical information: Yes Notes (Text): 04/10/18 04:35 I agree with the assessment and plan. Small pontine infarct. Will complete stroke work-up and continue secondary stroke prevention. Thank you.
--- NOTE | 2018-04-04 17:28 | CP.PCM.CON ---
History of Present Illness - History of Present Illness History of Present Illness: 48 year old female presents to the ED for evaluation of right arm and leg weakness which began around one week ago. Patient states symptoms are associated with dizziness, nausea, and left facial paresthesia. Patient was evaluated in t his ED on 04/01 and was diagnosed with vertigo. An official reading of the CT scan demonstrated a possible area of ischemia and patient was advised to return to the ED for further evaluation. Patient reports she started taking Aspirin since one week and her symptoms have slightly decreased. Patient denies headache, blurry vision, difficulty with speech or gait. Seen earlier today and discharged and called back again due to MRI reading Hx of HIV on HAART rx Neuro eval in progress - Medical History PMH: Asthma, HIV, HTN Family History: States: Unknown Family Hx Review of Systems - Review of Systems All systems: reviewed and no additional remarkable complaints except Past Patient History - Past Medical History & Family History Past Medical History?: Yes - Past Social History Smoking Status: Light Smoker < 10 Cigarettes Daily - CARDIAC Hx Hypertension: Yes - PULMONARY Hx Asthma: Yes - NEUROLOGICAL Hx Neurological Disorder: No - HEENT Hx HEENT Problems: No - RENAL Hx Chronic Kidney Disease: No - ENDOCRINE/METABOLIC Hx Endocrine Disorders: No - HEMATOLOGICAL/ONCOLOGICAL Hx Blood Disorders: Yes Hx Human Immunodeficiency Virus (HIV): Yes - INTEGUMENTARY Hx Dermatological Problems: No - MUSCULOSKELETAL/RHEUMATOLOGICAL Hx Musculoskeletal Disorders: No Hx Falls: No - GASTROINTESTINAL Hx Gastrointestinal Disorders: No - GENITOURINARY/GYNECOLOGICAL Hx Genitourinary Disorders: No - PSYCHIATRIC Hx Psychophysiologic Disorder: No Hx Substance Use: No - SURGICAL HISTORY Hx Surgeries: Yes Hx Hysterectomy: Yes (PARTIAL) - ANESTHESIA Hx Anesthesia: Yes Hx Anesthesia Reactions: No Meds Allergies/Adverse Reactions: Allergies Allergy/AdvReac Type Severity Reaction Status Date / Time No Known Allergies Allergy Verified 04/03/18 21:35 - Medications Medications: Current Medications Aspirin (Aspirin) 325 mg PO DAILY [facility] Last Admin: 04/04/18 14:05 Dose: 325 mg Clopidogrel Bisulfate (Plavix) 75 mg PO DAILY [facility] Last Admin: 04/04/18 13:52 Dose: 75 mg Emtricitabine/Tenofovir (Truvada 200 Mg-300 Mg) 1 tab PO DAILY [facility]; Protocol Last Admin: 04/04/18 13:52 Dose: 1 tab Famotidine (Pepcid) 20 mg PO DAILY [facility] Home Med (Darunavir/Cobicistat [Prezcobix 800 Mg-150 Mg Tablet]) 1 tab PO DAILY [facility] Meclizine HCl (Antivert) 12.5 mg PO Q6 PRN PRN Reason: Dizziness Last Admin: 04/04/18 13:52 Dose: 12.5 mg Metoprolol Tartrate (Lopressor) 50 mg PO DAILY [facility] Last Admin: 04/04/18 13:52 Dose: 50 mg Rosuvastatin Calcium (Crestor) 10 mg PO [facility] Physical Exam - Constitutional Appears: Non-toxic, Chronically Ill - Head Exam Head Exam: NORMOCEPHALIC - Eye Exam Eye Exam: PERRL - ENT Exam ENT Exam: Mucous Membranes Dry - Neck Exam Neck exam: Negative for: Lymphadenopathy - Respiratory Exam Respiratory Exam: Decreased Breath Sounds, Clear to Auscultation Bilateral - Cardiovascular Exam Cardiovascular Exam: REGULAR RHYTHM, +S1, +S2 - GI/Abdominal Exam GI & Abdominal Exam: Diminished Bowel Sounds, Soft. absent: Tenderness - Rectal Exam Rectal Exam: Deferred - Exam Exam: NORMAL INSPECTION - Extremities Exam Extremities exam: Negative for: pedal edema - Back Exam Back exam: absent: CVA tenderness (L), CVA tenderness (R) - Neurological Exam Neurological exam: Alert, CN II-XII Intact, Motor Sensory Deficit, Oriented x3, Reflexes Normal - Psychiatric Exam Psychiatric exam: Depressed - Skin Skin Exam: Dry Results - Vital Signs Recent Vital Signs: Last Vital Signs Temp 98.3 F 04/04/18 15:29 Pulse 70 04/04/18 15:29 Resp 20 04/04/18 15:29 BP 159/88 H 04/04/18 15:29 Pulse Ox 99 04/04/18 15:29 - Labs Labs: Laboratory Results - last 24 hr 04/03/18 04/03/18 21:59 21:59 Hemoglobin A1c 5.3 Triglycerides 150 H Cholesterol 239 H LDL Cholesterol Direct 166 H HDL Cholesterol 43 Assessment & Plan (1) CVA (cerebral vascular accident) Status: Acute (2) Muscle weakness Status: Acute - Assessment and Plan (Free Text) Assessment: Hx of HIV cont HAART check T cells and viral load
--- NOTE | 2018-04-04 18:48 | CARD ---
APPROVED REPORT Date of service: 04/04/2018 EXAM: Two-dimensional and M-mode echocardiogram with Doppler and color Doppler. Other Information Quality : GoodRhythm : INDICATION CVA/TIA HIV RISK FACTORS Hypertension 2D DIMENSIONS IVSd0.9 (0.7-1.1cm)LVDd4.3 (3.9-5.9cm) PWd0.9 (0.7-1.1cm)LA Qwzlsu91 (18-58mL) LVDs2.7 (2.5-4.0cm)FS (%) 37.6 % LVEF (%)67.9 (>50%)LVEF (Brown's)63.85 % M-Mode DIMENSIONS Left Atrium (MM)3.10 (2.5-4.0cm)IVSd3.25 (0.7-1.1cm) Aortic Root3.37 (2.2-3.7cm)LVDd2.79 (4.0-5.6cm) Aortic Cusp Exc.1.79 (1.5-2.0cm)PWd0.93 (0.7-1.1cm) FS (%) 1 %LVDs2.81 (2.0-3.8cm) Aortic Valve AI P 1/2 [id number] Mitral Valve MV E Dzwkjkpt598.4cm/sMV A Eabvhpgy995.1cm/sE/A ratio0.9 TDI Lateral E' Peak V7.51cm/sMedial E' Peak V4.67cm/sE/Lateral E'14.4 E/Medial E'23.2 Tricuspid Valve TR Peak Zrpkiprg255rt/sTR Peak Gr.[id number] LEFT VENTRICLE The left ventricle is normal size. There is normal left ventricular wall thickness. Left ventricle systolic function is normal. The Ejection Fraction is 65-70%. There is normal LV segmental wall motion. Tissue Doppler imaging reveals abnormal left ventricular diastolic dysfunction. RIGHT VENTRICLE The right ventricle is normal size. There is normal right ventricular wall thickness. The right ventricular systolic function is normal. ATRIA The left atrium is mildly dilated. The right atrium size is normal. The interatrial septum is intact with no evidence for an atrial septal defect. AORTIC VALVE The aortic valve is normal in structure. There is mild aortic regurgitation. There is no aortic valvular stenosis. There is no aortic valvular vegetation. MITRAL VALVE The mitral valve is normal in structure. There is no evidence of mitral valve prolapse. There is no mitral valve stenosis. Mitral regurgitation is mild. TRICUSPID VALVE The tricuspid valve is normal in structure. There is mild tricuspid regurgitation. Right ventricular systolic pressure is estimated at less than 30 mmHg. There is no pulmonary hypertension. PULMONIC VALVE The pulmonic valve is not well visualized. There is mild pulmonic valvular regurgitation. GREAT VESSELS The aortic root is normal in size. PERICARDIAL EFFUSION There is no significant pericardial effusion. <Conclusion> Left ventricle systolic function is normal. The Ejection Fraction is 65-70%. Diastolic dysfunction. There is mild aortic regurgitation. Mitral regurgitation is mild. There is mild tricuspid regurgitation. There is no pulmonary hypertension. There is mild pulmonic valvular regurgitation.
--- NOTE | 2018-04-04 20:53 | CP.PCM.HP ---
Past Patient History - Past Medical History & Family History Past Medical History?: Yes - Past Social History Smoking Status: Light Smoker < 10 Cigarettes Daily - CARDIAC Hx Hypertension: Yes - PULMONARY Hx Asthma: Yes - NEUROLOGICAL Hx Neurological Disorder: No - HEENT Hx HEENT Problems: No - RENAL Hx Chronic Kidney Disease: No - ENDOCRINE/METABOLIC Hx Endocrine Disorders: No - HEMATOLOGICAL/ONCOLOGICAL Hx Blood Disorders: Yes Hx Human Immunodeficiency Virus (HIV): Yes - INTEGUMENTARY Hx Dermatological Problems: No - MUSCULOSKELETAL/RHEUMATOLOGICAL Hx Musculoskeletal Disorders: No Hx Falls: No - GASTROINTESTINAL Hx Gastrointestinal Disorders: No - GENITOURINARY/GYNECOLOGICAL Hx Genitourinary Disorders: No - PSYCHIATRIC Hx Psychophysiologic Disorder: No Hx Substance Use: No - SURGICAL HISTORY Hx Surgeries: Yes Hx Hysterectomy: Yes (PARTIAL) - ANESTHESIA Hx Anesthesia: Yes Hx Anesthesia Reactions: No Meds Allergies/Adverse Reactions: Allergies Allergy/AdvReac Type Severity Reaction Status Date / Time No Known Allergies Allergy Verified 04/03/18 21:35 Physical Exam - Constitutional Appears: Well - Head Exam Head Exam: ATRAUMATIC, NORMAL INSPECTION, NORMOCEPHALIC - Eye Exam Eye Exam: EOMI, Normal appearance, PERRL Pupil Exam: NORMAL ACCOMODATION, PERRL - ENT Exam ENT Exam: Mucous Membranes Moist, Normal Exam - Neck Exam Neck exam: Positive for: Normal Inspection - Respiratory Exam Respiratory Exam: Decreased Breath Sounds - Cardiovascular Exam Cardiovascular Exam: REGULAR RHYTHM, +S1, +S2 - GI/Abdominal Exam GI & Abdominal Exam: Diminished Bowel Sounds, Soft - Rectal Exam Rectal Exam: Deferred Results - Vital Signs Recent Vital Signs: Last Vital Signs Temp 98.3 F 04/04/18 15:29 Pulse 70 04/04/18 15:29 Resp 20 04/04/18 15:29 BP 159/88 H 04/04/18 15:29 Pulse Ox 99 04/04/18 15:29 - Labs Labs: Laboratory Results - last 24 hr 04/03/18 04/03/18 21:59 21:59 Hemoglobin A1c 5.3 Triglycerides 150 H Cholesterol 239 H LDL Cholesterol Direct 166 H HDL Cholesterol 43
[2018-04-05 08:38] LABS: BASO % 0.2 % (0.0-2.0); EOS # 0.1 K/uL (0.0-0.7); EOS % 1.3 % (0.0-4.0); HEMOGLOBIN 12.9 g/dL (11.0-16.0); LYMPH % 37.9 % (20.0-40.0); MEAN CELL VOLUME 95.9 fL (81.0-99.0); MEAN CORPUSCULAR HEMOGLOBIN 33.5 pg (27.0-31.0); MEAN PLATELET VOLUME 7.8 fL (7.2-11.7); MONO # 0.4 K/uL (0.0-0.8); MONO % 8.3 % (0.0-10.0); NEUT # 2.7 K/uL (1.8-7.0); NEUT % 52.3 % (50.0-75.0); NRBC % 0.1 % (0.0-2.0); RBC 3.85 Mil/uL (3.80-5.20); RED CELL DISTRIBUTION WIDTH 12.7 % (11.5-14.5); WHITE BLOOD COUNT 5.2 K/uL (4.8-10.8)
[2018-04-05 09:02] LABS: ALB/GLOB RATIO 1.2 (1.0-2.1); ALBUMIN 3.9 g/dL (3.5-5.0); ALT/SGPT 25 U/L (9-52); AST/SGOT 28 U/L (14-36); BLOOD UREA NITROGEN 17 mg/dL (7-17); CALCIUM 9.2 mg/dl (8.6-10.4); GFR NON-AFRICAN AMERICAN > 60; HDL CHOLESTEROL 35 mg/dL (30-70)
[2018-04-05 09:10] LABS: LDL CHOLESTEROL 159 mg/dL (0-129)
[2018-04-05] MEDS: Emtricitabine-Tenofovir 200 mg-300 mg Tab PO SCH (10:18)
--- NOTE | 2018-04-05 17:48 | CP.PCM.PN ---
Subjective - Date & Time of Evaluation Date of Evaluation: 04/05/18 Time of Evaluation: 12:30 - Subjective Subjective: clinically same Objective - Vital Signs/Intake and Output Vital Signs (last 24 hours): Temp Pulse Resp BP Pulse Ox 97.9 F 62 20 126/65 100 04/05/18 15:20 04/05/18 15:20 04/05/18 15:20 04/05/18 15:20 04/05/18 15:20 - Medications Medications: Current Medications Aspirin (Aspirin) 325 mg PO DAILY [facility] Last Admin: 04/05/18 10:18 Dose: 325 mg Clopidogrel Bisulfate (Plavix) 75 mg PO DAILY [facility] Last Admin: 04/05/18 10:17 Dose: 75 mg Darunavir (Prezista) 800 mg PO DAILY [facility]; Protocol Last Admin: 04/05/18 10:18 Dose: 800 mg Emtricitabine/Tenofovir (Truvada 200 Mg-300 Mg) 1 tab PO DAILY [facility]; Protocol Last Admin: 04/05/18 10:18 Dose: 1 tab Famotidine (Pepcid) 20 mg PO DAILY [facility] Last Admin: 04/05/18 10:18 Dose: 20 mg Meclizine HCl (Antivert) 12.5 mg PO Q6 PRN PRN Reason: Dizziness Last Admin: 04/05/18 17:44 Dose: 12.5 mg Metoprolol Tartrate (Lopressor) 50 mg PO DAILY [facility] Last Admin: 04/05/18 10:18 Dose: 50 mg Ritonavir (Norvir) 100 mg PO BIDBS [facility]; Protocol Last Admin: 04/05/18 17:41 Dose: 100 mg Rosuvastatin Calcium (Crestor) [address] [facility] Last Admin: 04/04/18 22:24 Dose: 10 mg - Labs Labs: 04/05/18 08:23 04/05/18 08:23
--- NOTE | 2018-04-05 17:56 | CP.PCM.PN ---
Subjective - Date & Time of Evaluation Date of Evaluation: 04/05/18 Time of Evaluation: 09:00 - Subjective Subjective: Hx of HIV on HAART rx Neuro eval in progress for weakness/ possible CVA Objective - Vital Signs/Intake and Output Vital Signs (last 24 hours): Temp Pulse Resp BP Pulse Ox 97.9 F 62 20 126/65 100 04/05/18 15:20 04/05/18 15:20 04/05/18 15:20 04/05/18 15:20 04/05/18 15:20 - Medications Medications: Current Medications Aspirin (Aspirin) 325 mg PO DAILY [facility] Last Admin: 04/05/18 10:18 Dose: 325 mg Clopidogrel Bisulfate (Plavix) 75 mg PO DAILY [facility] Last Admin: 04/05/18 10:17 Dose: 75 mg Darunavir (Prezista) 800 mg PO DAILY [facility]; Protocol Last Admin: 04/05/18 10:18 Dose: 800 mg Emtricitabine/Tenofovir (Truvada 200 Mg-300 Mg) 1 tab PO DAILY [facility]; Protocol Last Admin: 04/05/18 10:18 Dose: 1 tab Famotidine (Pepcid) 20 mg PO DAILY [facility] Last Admin: 04/05/18 10:18 Dose: 20 mg Meclizine HCl (Antivert) 12.5 mg PO Q6 PRN PRN Reason: Dizziness Last Admin: 04/05/18 17:44 Dose: 12.5 mg Metoprolol Tartrate (Lopressor) 50 mg PO DAILY [facility] Last Admin: 04/05/18 10:18 Dose: 50 mg Ritonavir (Norvir) 100 mg PO BIDBS [facility]; Protocol Last Admin: 04/05/18 17:41 Dose: 100 mg Rosuvastatin Calcium (Crestor) 10 mg PO HS [facility] Last Admin: 04/04/18 22:24 Dose: 10 mg - Labs Labs: 04/05/18 08:23 04/05/18 08:23 - Constitutional Appears: Non-toxic, Chronically Ill - Head Exam Head Exam: NORMOCEPHALIC - Eye Exam Eye Exam: PERRL - ENT Exam ENT Exam: Mucous Membranes Dry - Neck Exam Neck Exam: absent: Lymphadenopathy - Respiratory Exam Respiratory Exam: Decreased Breath Sounds - Cardiovascular Exam Cardiovascular Exam: REGULAR RHYTHM - GI/Abdominal Exam GI & Abdominal Exam: Distended, Soft - Rectal Exam Rectal Exam: Deferred - Exam Exam: NORMAL INSPECTION - Extremities Exam Extremities Exam: absent: Pedal Edema - Back Exam Back Exam: absent: CVA tenderness (L), CVA tenderness (R) - Neurological Exam Neurological Exam: Alert, Awake, CN II-XII Intact, Oriented x3 Neuro motor strength exam: Left Upper Extremity: 4, Right Upper Extremity: 4, Left Lower Extremity: 4, Right Lower Extremity: 4 Assessment and Plan (1) CVA (cerebral vascular accident) Status: Acute (2) Muscle weakness Status: Acute - Assessment and Plan (Free Text) Assessment: haart rx in progress await t cells needs counseling and follow up
[2018-04-06 00:30] VITALS: O2SAT 99
[2018-04-06 06:23] LABS: BASO % 0.4 % (0.0-2.0); EOS # 0.1 K/uL (0.0-0.7); EOS % 1.2 % (0.0-4.0); HEMOGLOBIN 12.5 g/dL (11.0-16.0); LYMPH # 1.9 K/uL (1.0-4.3); LYMPH % 34.2 % (20.0-40.0); MEAN CELL VOLUME 95.6 fL (81.0-99.0); MEAN CORPUSCULAR HEMOGLOBIN 33.3 pg (27.0-31.0); MEAN CORPUSCULAR HGB CONC 34.9 g/dL (33.0-37.0); MEAN PLATELET VOLUME 8.2 fL (7.2-11.7); MONO # 0.5 K/uL (0.0-0.8); MONO % 8.2 % (0.0-10.0); NEUT # 3.1 K/uL (1.8-7.0); RBC 3.73 Mil/uL (3.80-5.20); RED CELL DISTRIBUTION WIDTH 12.7 % (11.5-14.5); WHITE BLOOD COUNT 5.6 K/uL (4.8-10.8)
[2018-04-06 06:47] LABS: ALB/GLOB RATIO 1.2 (1.0-2.1); ALBUMIN 4.1 g/dL (3.5-5.0); ALT/SGPT 19 U/L (9-52); AST/SGOT 24 U/L (14-36); BLOOD UREA NITROGEN 17 mg/dL (7-17); CALCIUM 9.3 mg/dl (8.6-10.4); GFR NON-AFRICAN AMERICAN > 60
[2018-04-06 08:07] VITALS: BP 121/77; TEMP 98.4
[2018-04-06 08:29] VITALS: PULSE 76
[2018-04-06] MEDS: Emtricitabine-Tenofovir 200 mg-300 mg Tab PO SCH (09:22)
--- NOTE | 2018-04-06 09:58 | CP.PCM.PN ---
Subjective - Date & Time of Evaluation Date of Evaluation: 04/06/18 Time of Evaluation: 09:58 - Subjective Subjective: PGY-2 Progress Note Patient seen and examined at bedside. Per nursing no acute events occurred overnight . She denies any chest pain, shortness of breath, fevers, chills, nausea, vomiting, headaches, dizziness, syncopal episodes, or any other complaints. Objective - Vital Signs/Intake and Output Vital Signs (last 24 hours): Temp Pulse Resp BP Pulse Ox 98.4 F 76 20 121/77 99 04/06/18 07:15 04/06/18 08:22 04/06/18 07:15 04/06/18 07:15 04/06/18 07:15 - Medications Medications: Current Medications Aspirin (Aspirin) 325 mg PO DAILY [facility] Last Admin: 04/06/18 09:21 Dose: 325 mg Clopidogrel Bisulfate (Plavix) 75 mg PO DAILY [facility] Last Admin: 04/06/18 09:21 Dose: 75 mg Darunavir (Prezista) 800 mg PO DAILY [facility]; Protocol Last Admin: 04/06/18 09:21 Dose: 800 mg Emtricitabine/Tenofovir (Truvada 200 Mg-300 Mg) 1 tab PO DAILY [facility]; Protocol Last Admin: 04/06/18 09:22 Dose: 1 tab Famotidine (Pepcid) 20 mg PO DAILY [facility] Last Admin: 04/06/18 09:21 Dose: 20 mg Meclizine HCl (Antivert) 12.5 mg PO Q6 PRN PRN Reason: Dizziness Last Admin: 04/05/18 17:44 Dose: 12.5 mg Metoprolol Tartrate (Lopressor) 50 mg PO DAILY [facility] Last Admin: 04/06/18 09:21 Dose: 50 mg Ritonavir (Norvir) 100 mg PO BIDBS [facility]; Protocol Last Admin: 04/06/18 07:21 Dose: 100 mg Rosuvastatin Calcium (Crestor) 10 mg PO HS [facility] Last Admin: 04/05/18 21:21 Dose: 10 mg - Labs Labs: 04/06/18 06:15 04/06/18 06:15 - Head Exam Head Exam: ATRAUMATIC, NORMAL INSPECTION - Eye Exam Eye Exam: EOMI, Normal appearance, PERRL Pupil Exam: NORMAL ACCOMODATION, PERRL - ENT Exam ENT Exam: Mucous Membranes Moist, Normal Oropharynx - Respiratory Exam Respiratory Exam: Clear to Ausculation Bilateral, NORMAL BREATHING PATTERN. absent: Prolonged Expiratory Phase, Respiratory Distress - Cardiovascular Exam Cardiovascular Exam: REGULAR RHYTHM, +S1, +S2 - GI/Abdominal Exam GI & Abdominal Exam: Soft, Normal Bowel Sounds - Neurological Exam Neurological Exam: Alert, Awake, CN II-XII Intact, Oriented x3 - Psychiatric Exam Psychiatric exam: Normal Affect, Normal Mood - Skin Skin Exam: Dry, Intact, Normal Color Assessment and Plan - Assessment and Plan (Free Text) Plan: 48 year old female with a past medical history of hiv, hypertension, anxiety, and insomnia who was admitted for ?cva. Plan: 1?CVA Code Stroke Called Neurology consulted. Help appreciated Patient is without focal deficits, is able to walk with good pace, well- balanced stride, and without assistance as observed by myself and Dr. Elizalde, thus PT/OT not indicated. Continue: Aspirin 325mg PO Daily, Plavix 75mg PO Daily Discontinue: Rosuvastatin 10mg PO HS Start Lipitor 80mg Daily due to elevated cholesterol ([id number], [id number], FOC=[id number]) Encouraged complete smoking cessation MRI head: :Findings most compatible with a small infarct at the left side of the sujatha on a subacute basis, favored over acute. No lobar brain infarction identified. No mass effect. Borderline diffuse cerebral atrophy. Early chronic microangiopathy is a possibility to explain limited white-matter signal abnormalities, particularly the patient is diabetic or has other vasculopathic disorder. Please see differential diagnosis as other etiologies are not excluded. Corpus callosum is normal however. MRA head: :Moderate stenosis mid distal right cavernous ICA. Consider follow-up CT angiogram of the head and neck for additional characterization. There is also likely irregular plaque at the proximal left cavernous ICA simulating a small aneurysm which can also be evaluated by CT angiography. Hypoplastic right A1 MELA segment with remainder of the intracranial MR angiogram unremarkable. Head ct: :Focal hypodensity seen within the left aspect of the sujatha on series 4, image 13 which may represent age-indeterminate ischemic change. Further evaluation with MRI is recommended. These findings were relayed to Bong Holbrook at 8:44 a.m. on 04/02/2018. MRA Neck: : No significant common or cervical internal carotid artery stenosis bilaterally or bilateral vertebral arteries. Limited carotid bulbar plaque identified bilaterally. PT/OT Medications: Aspirin 325mg PO Daily Plavix 75mg PO Daily Lipitor 80mg PO HS 2. HIV -Patient had recent personal struggles that prevented her from maintaining medication regimen. -Infectious Disease Dr. Navas consulted. Help appreciated -CD4 count ordered. Will f/u with results. -HIV viral load ordered. Will f/u with results. -RPR non reactive 3.Hypertension -Restart Metoprolol 50mg PO Daily ppx -Pepcid -SCD's Dispo: Patient cleared for discharge. Discharge Instructions: 1.F/u with PMD within 1 weeks of discharge. 2.F/u with Neurology within 1 week of discharge. 3.Return to hospital for any new or worsening symptoms. Medications: 1.Lipitor 80mg PO HS, #30, No refills 2.Aspirin 325mg PO Daily, #30, No refills 3. Plavix 75mg PO Daily, #30, No refills All management per Dr. Alexx Schofield, PGY-2
[2018-04-06 13:38] LABS: % CD4 (T HELPER CELL) 16 Percent (30-61); % CD8 (SUPPRESSOR T CELL) 79 Percent (12-42); ABSOLUTE CD4 CELLS 233 Cells/mcL (490-1740); ABSOLUTE CD8 CELLS 1189 Cells/mcL (180-1170); ABSOLUTE LYMPHOCYTES 1503 Cells/mcL (850-3900)
== END 2018-04-06 14:40 | disposition home or self-care (01) | DRG 47 ==
LOC: C.ER 21:24 → C.9E 21:46 → C.6T 22:51
PROVIDERS: ADMIT Internal Medicine Nephrology; ATTEND Internal Medicine Nephrology
DX: G45.9 Transient cerebral ischemic attack, unspecified (principal); B20 Human immunodeficiency virus [HIV] disease; G31.9 Degenerative disease of nervous system, unspecified; E11.9 Type 2 diabetes mellitus without complications; E78.00 Pure hypercholesterolemia, unspecified; I10 Essential (primary) hypertension; F41.9 Anxiety disorder, unspecified; G47.00 Insomnia, unspecified; F17.210 Nicotine dependence, cigarettes, uncomplicated; J45.909 Unspecified asthma, uncomplicated; R53.1 Weakness